=== PATIENT | male | born 1985 | race Two or more races ===

== ENCOUNTER 2020-07-22 19:28 | Inpatient (IN) | payer BC, MEDICAID ==
[~2020-07-22] VITALS: Ht 167.6 cm; Wt 72.4 kg
[~2020-07-22 19:28] MED LIST: AMOX1TAB64 PO; CHOL10003 PO; MELA5TAB14 PO; SULF-16 PO
[2020-07-22] MEDS ORDERED: SODIUM CHLORIDE FLUSH 10ML SYR IVF ONE (20:00)
[2020-07-22] MEDS ORDERED: ACETAMINOPHEN 500 MG TABLET PO ONE (20:00)
[2020-07-22] MEDS ORDERED: SODIUM CHLORIDE 0.9% 1,000ML IVBOLUS ONE (20:00)
--- NOTE | 2020-07-22 20:13 | NUR ---
THIS IS A 34 YR OLD MALE WITH NEW DX OF HIV. PT STATES HE RECIEVED PNA, FLU AND MUNNINGITIS VACCINE YESTERDAY AND STARTING SHORTLY AFTER HE BEGAN TO EXPERIENCE DIARRHEA, COUGH, SOB, AND FEVER. PT PLACED ON CARDIAC, NIBP, O2 MONITORING . IV ACCESS OBTAINED AND IV FLUIDS STARTED. PT IN ISOLATION PRECAUTIONS. LABS AND CULTURES DRAWN
--- NOTE | 2020-07-22 20:19 | NUR ---
PER PT REQUEST PHARMACY CONTACTED REGARDING INTERACTION WITH TYLENOL AND HIS HOME MED OF BIKTARVY. PER NATALEE PHAMACIST NONE NOTED.
[2020-07-22] MEDS ORDERED: ACETAMINOPHEN 500 MG TABLET ONE (20:20)
[2020-07-22 20:33] LABS: BASOPHILS % (AUTO) 0 % (0-1); EOSINOPHILS % (AUTO) 1 % (1-7); LYMPHOCYTES % (AUTO) 16 % (22-44); MEAN CORPUSCULAR HEMOGLOBIN 24.3 pg (27.5-34.5); MEAN CORPUSCULAR HGB CONC 32.7 g/dL (33.2-36.2); MEAN PLATELET VOLUME 8.1 fL (7.4-10.4); MONOCYTES % (AUTO) 7 % (2-9); NEUTROPHILS % (AUTO) 76 % (42-75); PLATELET COUNT 296 x10^3/uL (130-400); RED BLOOD COUNT 5.16 x10^6/uL (4.38-5.82); RED CELL DISTRIBUTION WIDTH 14.5 % (9.4-14.8)
[2020-07-22 20:35] LABS: MD NO
[2020-07-22 20:43] LABS: ALBUMIN 2.7 g/dL (3.4-5.0); ANION GAP 10 mmol/L (5-15); CALCIUM 8.2 mg/dL (8.5-10.1); CHLORIDE 99 mmol/L (98-107)
[2020-07-22 20:46] LABS: ALANINE AMINOTRANSFERASE 304 U/L (12-78); ALKALINE PHOSPHATASE 94 U/L (45-117); BILIRUBIN,TOTAL 0.5 mg/dL (0.2-1.0); CREATININE 1.15 mg/dL (0.7-1.3); TOTAL PROTEIN 7.2 g/dL (6.4-8.2)
[2020-07-22] MEDS ORDERED: CEFTRIAXONE PMX 1GM/50ML 50 ML ONE (20:57)
[2020-07-22] MEDS ORDERED: CEFTRIAXONE PMX 1GM/50ML 50 ML IVPB ONE (21:00)
[2020-07-22] MEDS ORDERED: AZITHROMYCIN 500 MG in SODIUM CHLORIDE 0.9% 250 ML IVPB ONE (21:00)
--- NOTE | 2020-07-22 21:15 | NUR ---
PER PHARMACY ROCEPHIN AND AZITHROMYCIN HAVE NO INTERACTIONS WITH BIKTARVY
[2020-07-22] MEDS ORDERED: OMNIPAQUE 350 MG/ML, 100ML BOTTLE ONE (21:24)
[2020-07-22] MEDS ORDERED: MELATONIN 5 MG TABLET PO PRN (22:00)
[2020-07-22] MEDS ORDERED: BISACODYL 10 MG SUPP PR PRN (22:00)
[2020-07-22] MEDS ORDERED: PROMETHAZINE 25 MG/ML, 1ML IM PRN (22:00)
[2020-07-22] MEDS ORDERED: DIPHENHYDRAMINE 25 MG CAPSULE PO PRN (22:00)
[2020-07-22] MEDS ORDERED: SULFAMETH./TRIMETHOPRIM 10 ML in DEXTROSE 5% 250 ML IV SCH (22:00)
[2020-07-22] MEDS ORDERED: DEXAMETHASONE 4 MG/ML, 1ML IVPush ONE (22:00)
[2020-07-22] MEDS ORDERED: ONDANSETRON 2MG/ML, 2ML IVPush PRN (22:00)
[2020-07-22] MEDS: AZITHROMYCIN 500 MG in SODIUM CHLORIDE 0.9% 250 ML IV SCH (22:00)
[2020-07-22] MEDS ORDERED: CYCLOBENZAPRINE 10 MG TABLET PO PRN (22:00)
[2020-07-22] MEDS: CEFTRIAXONE PMX 2GM/50ML 50 ML IVPB SCH (22:00)
[2020-07-22] MEDS ORDERED: POLYETHYLENE GLYCOL 17 GM PACKET PO PRN (22:00)
[2020-07-22] MEDS ORDERED: POTASSIUM CHLORIDE 20 MEQ TAB.ER.PRT PO ONE (22:00)
[2020-07-22 22:07] VITALS: BP 99/64
[2020-07-22] MEDS ORDERED: BICT1TAB PO (22:14)
[2020-07-22] MEDS ORDERED: FLUC200T4 PO (22:14)
[2020-07-22] MEDS ORDERED: SULFAMETH IV SCH (22:30)
[2020-07-22] MEDS ORDERED: TRIMETHOPRIM IV SCH (22:30)
[2020-07-22] MEDS ORDERED: DEXTROSE IV SCH (22:30)
[2020-07-23] MEDS: LACTATED RINGERS 1,000 ML IV SCH ×2 (00:15→09:45)
[2020-07-23] MEDS: SULFAMETH./TRIMETHOPRIM 20 ML in DEXTROSE 5% 500 ML IV SCH ×3 (00:15→13:05)
[2020-07-23] MEDS: ENOXAPARIN 40 MG/0.4 ML SQ SCH ×2 (00:16→22:05)
[2020-07-23 02:05] VITALS: BP 107/69
[2020-07-23] MEDS: GUAIFENESIN/DM 200-20MG, 10ML UDC PO PRN ×3 (02:49→22:11)
[2020-07-23 05:05] LABS: BASOPHILS % (AUTO) 0 % (0-1); EOSINOPHILS % (AUTO) 1 % (1-7); LYMPHOCYTES % (AUTO) 13 % (22-44); MEAN CORPUSCULAR HEMOGLOBIN 24.4 pg (27.5-34.5); MEAN CORPUSCULAR HGB CONC 32.6 g/dL (33.2-36.2); MONOCYTES % (AUTO) 4 % (2-9); NEUTROPHILS % (AUTO) 82 % (42-75); PLATELET COUNT 261 x10^3/uL (130-400); RED BLOOD COUNT 4.86 x10^6/uL (4.38-5.82); RED CELL DISTRIBUTION WIDTH 14.6 % (9.4-14.8)
[2020-07-23 05:08] LABS: MD NO
[2020-07-23 05:14] LABS: ALBUMIN 2.3 g/dL (3.4-5.0); ANION GAP 6 mmol/L (5-15); CALCIUM 7.7 mg/dL (8.5-10.1); CHLORIDE 101 mmol/L (98-107)
[2020-07-23 05:17] LABS: ALANINE AMINOTRANSFERASE 234 U/L (12-78); ALKALINE PHOSPHATASE 77 U/L (45-117); BILIRUBIN,TOTAL 0.4 mg/dL (0.2-1.0); CREATININE 0.93 mg/dL (0.7-1.3); TOTAL PROTEIN 6.3 g/dL (6.4-8.2)
[2020-07-23 07:32] VITALS: BP 112/75
[2020-07-23] MEDS: Biktarvy HOMEMEDPO SCH (08:01)
[2020-07-23] MEDS ORDERED: FAMOTIDINE 20 MG/2 ML IVPush SCH (09:00)
[2020-07-23] MEDS: FAMOTIDINE 20 MG TABLET PO SCH ×2 (09:44→20:05)
[2020-07-23] MEDS: FLUCONAZOLE 200 MG/100 ML 100 ML IV SCH (09:45)
[2020-07-23] MEDS: SENNA/DOCUSATE TABLET PO SCH (09:53)
[2020-07-23] MEDS ORDERED: methylPREDNISolone SOD SUCC 125 MG/2 ML IVPush ONE (11:30)
[2020-07-23 12:59] VITALS: BP 101/67
[2020-07-23 16:11] LABS: OCCULT BLOOD NEGATIVE (NEGATIVE)
[2020-07-23 16:28] LABS: CLOSTRIDIUM DIFFICILE ANTIGEN NEGATIVE; CLOSTRIDIUM DIFFICILE TOXIN NEGATIVE (Negative); CRYPTOSPORIDIUM ANTIGEN Negative (Negative)
[2020-07-23 16:48] LABS: STOOL FOR LEUKOCYTES NONE SEEN (NEGATIVE)
[2020-07-23] MEDS: DEXTROSE 5% IVPB SCH (17:34)
[2020-07-23] MEDS: PENTAMIDINE IVPB SCH (17:34)
[2020-07-23 19:19] VITALS: BP 104/68
[2020-07-23] MEDS: CEFTRIAXONE PMX 2GM/50ML 50 ML IVPB SCH (20:06)
[2020-07-23] MEDS: AZITHROMYCIN 500 MG in SODIUM CHLORIDE 0.9% 250 ML IV SCH (22:05)
[2020-07-24 01:29] VITALS: BP 95/60
[2020-07-24 05:35] LABS: BASOPHILS % (AUTO) 0 % (0-1); EOSINOPHILS % (AUTO) 0 % (1-7); LYMPHOCYTES % (AUTO) 19 % (22-44); MD NO; MEAN CORPUSCULAR HEMOGLOBIN 24.6 pg (27.5-34.5); MEAN CORPUSCULAR HGB CONC 32.6 g/dL (33.2-36.2); MEAN PLATELET VOLUME 8.2 fL (7.4-10.4); MONOCYTES % (AUTO) 7 % (2-9); NEUTROPHILS % (AUTO) 73 % (42-75); PLATELET COUNT 254 x10^3/uL (130-400); RED BLOOD COUNT 4.59 x10^6/uL (4.38-5.82); RED CELL DISTRIBUTION WIDTH 14.6 % (9.4-14.8)
[2020-07-24 05:43] LABS: ALBUMIN 2.1 g/dL (3.4-5.0); ANION GAP 6 mmol/L (5-15); CALCIUM 7.9 mg/dL (8.5-10.1); CHLORIDE 107 mmol/L (98-107)
[2020-07-24 05:47] LABS: ALANINE AMINOTRANSFERASE 170 U/L (12-78); ALKALINE PHOSPHATASE 63 U/L (45-117); BILIRUBIN,TOTAL 0.2 mg/dL (0.2-1.0); CREATININE 0.79 mg/dL (0.7-1.3); TOTAL PROTEIN 5.8 g/dL (6.4-8.2)
[2020-07-24 07:04] VITALS: BP 102/62
[2020-07-24] MEDS: FAMOTIDINE 20 MG TABLET PO SCH ×2 (07:53→21:16)
[2020-07-24] MEDS: Biktarvy HOMEMEDPO SCH ×2 (07:56→09:26)
[2020-07-24] MEDS ORDERED: methylPREDNISolone SOD SUCC 125 MG/2 ML IVPush ONE (08:00)
[2020-07-24] MEDS: FLUCONAZOLE 200 MG/100 ML 100 ML IV SCH (09:26)
[2020-07-24] MEDS: SENNA/DOCUSATE TABLET PO SCH (09:27)
[2020-07-24] MEDS ORDERED: SULFAMETH./TRIMETHOPRIM 20 ML in DEXTROSE 5% 500 ML IV ONE (10:00)
[2020-07-24] MEDS ORDERED: PLEASE ENTER ALLERGIES MC SCH (10:00)
[2020-07-24 10:59] VITALS: BP 96/63
[2020-07-24 12:30] VITALS: BP 92/59
[2020-07-24] MEDS: GUAIFENESIN/DM 200-20MG, 10ML UDC PO PRN ×2 (13:19→21:16)
[2020-07-24] MEDS: SULFAMETH./TRIMETHOPRIM 20 ML in DEXTROSE 5% 500 ML IV SCH (17:22)
[2020-07-24 19:25] VITALS: BP 98/61
[2020-07-24] MEDS: CEFTRIAXONE PMX 2GM/50ML 50 ML IVPB SCH (21:16)
[2020-07-24] MEDS: ACETAMINOPHEN 325 MG TABLET PO PRN (21:46)
[2020-07-24] MEDS: AZITHROMYCIN 500 MG in SODIUM CHLORIDE 0.9% 250 ML IV SCH (22:42)
[2020-07-24] MEDS: ENOXAPARIN 40 MG/0.4 ML SQ SCH (22:42)
[2020-07-25] VITALS (9 sets, daily range): BP systolic 73–99; BP diastolic 40–63
[2020-07-25] MEDS: SULFAMETH./TRIMETHOPRIM 20 ML in DEXTROSE 5% 500 ML IV SCH ×3 (00:17→11:32)
[2020-07-25] MEDS ORDERED: SODIUM CHLORIDE 0.9%, 500ML IVBOLUS ONE (01:00)
[2020-07-25] MEDS: SENNA/DOCUSATE TABLET PO SCH (07:17)
[2020-07-25] MEDS: FAMOTIDINE 20 MG TABLET PO SCH ×2 (07:56→21:03)
[2020-07-25] MEDS: Biktarvy HOMEMEDPO SCH (07:57)
[2020-07-25] MEDS: ACETAMINOPHEN 325 MG TABLET PO PRN ×3 (08:05→22:32)
[2020-07-25] MEDS: FLUCONAZOLE 200 MG/100 ML 100 ML IV SCH (09:08)
[2020-07-25] MEDS ORDERED: DEXTROSE 5% IVPB SCH (12:00)
[2020-07-25] MEDS ORDERED: PENTAMIDINE IVPB SCH (12:00)
[2020-07-25] MEDS: DEXTROSE 5% IVPB SCH (17:26)
[2020-07-25] MEDS: PENTAMIDINE IVPB SCH (17:26)
[2020-07-25] MEDS: ENOXAPARIN 40 MG/0.4 ML SQ SCH (21:03)
[2020-07-25] MEDS: CEFTRIAXONE PMX 2GM/50ML 50 ML IVPB SCH (21:03)
[2020-07-25] MEDS: GUAIFENESIN/DM 200-20MG, 10ML UDC PO PRN (21:14)
[2020-07-25] MEDS: AZITHROMYCIN 500 MG in SODIUM CHLORIDE 0.9% 250 ML IV SCH (22:32)
[2020-07-26] VITALS (7 sets, daily range): BP systolic 80–108; BP diastolic 44–67
[2020-07-26] MEDS ORDERED: SODIUM CHLORIDE 0.9% 1,000ML IVBOLUS ONE (00:30)
[2020-07-26] MEDS: GUAIFENESIN/DM 200-20MG, 10ML UDC PO PRN ×2 (04:48→14:56)
[2020-07-26 05:45] LABS: BASOPHILS % (AUTO) 0 % (0-1); EOSINOPHILS % (AUTO) 4 % (1-7); LYMPHOCYTES % (AUTO) 20 % (22-44); MEAN CORPUSCULAR HEMOGLOBIN 24.2 pg (27.5-34.5); MEAN CORPUSCULAR HGB CONC 32.6 g/dL (33.2-36.2); MONOCYTES % (AUTO) 5 % (2-9); NEUTROPHILS % (AUTO) 71 % (42-75); PLATELET COUNT 322 x10^3/uL (130-400); RED BLOOD COUNT 4.72 x10^6/uL (4.38-5.82); RED CELL DISTRIBUTION WIDTH 14.4 % (9.4-14.8)
[2020-07-26 05:48] LABS: MD NO
[2020-07-26 05:52] LABS: CHLORIDE 104 mmol/L (98-107)
[2020-07-26 06:04] LABS: ALANINE AMINOTRANSFERASE 118 U/L (12-78); ALBUMIN 2.2 g/dL (3.4-5.0); ALKALINE PHOSPHATASE 61 U/L (45-117); ANION GAP 8 mmol/L (5-15); BILIRUBIN,TOTAL 0.3 mg/dL (0.2-1.0); CALCIUM 8.3 mg/dL (8.5-10.1); CREATININE 1.13 mg/dL (0.7-1.3); TOTAL PROTEIN 6.1 g/dL (6.4-8.2)
[2020-07-26] MEDS: SENNA/DOCUSATE TABLET PO SCH (08:50)
[2020-07-26] MEDS: Biktarvy HOMEMEDPO SCH (08:50)
[2020-07-26] MEDS: FAMOTIDINE 20 MG TABLET PO SCH ×2 (08:51→21:04)
[2020-07-26 09:12] LABS: CRYPTOSPORIDIUM ANTIGEN Negative (Negative)
[2020-07-26] MEDS: PENTAMIDINE IVPB SCH (16:31)
[2020-07-26] MEDS: DEXTROSE 5% IVPB SCH (16:31)
[2020-07-26] MEDS: CEFTRIAXONE PMX 2GM/50ML 50 ML IVPB SCH (21:04)
[2020-07-26] MEDS: ACETAMINOPHEN 325 MG TABLET PO PRN (21:04)
[2020-07-26] MEDS: ENOXAPARIN 40 MG/0.4 ML SQ SCH (21:05)
[2020-07-26] MEDS: AZITHROMYCIN 500 MG in SODIUM CHLORIDE 0.9% 250 ML IV SCH (22:21)
[2020-07-27] VITALS (7 sets, daily range): BP systolic 68–98; BP diastolic 46–62
[2020-07-27] MEDS ORDERED: SODIUM CHLORIDE 0.9% 1,000ML IVBOLUS ONE (00:30)
[2020-07-27] MEDS ORDERED: LACTATED RINGERS 1,000 ML IV SCH (02:00)
[2020-07-27] MEDS: GUAIFENESIN/DM 200-20MG, 10ML UDC PO PRN ×2 (03:07→16:01)
[2020-07-27] MEDS: FAMOTIDINE 20 MG TABLET PO SCH ×2 (08:45→20:53)
[2020-07-27] MEDS: SENNA/DOCUSATE TABLET PO SCH (08:45)
[2020-07-27] MEDS: Biktarvy HOMEMEDPO SCH (08:45)
[2020-07-27] MEDS: ACETAMINOPHEN 325 MG TABLET PO PRN ×2 (08:45→17:59)
[2020-07-27] MEDS: LACTATED RINGERS 1,000 ML IV SCH ×2 (11:05→19:51)
[2020-07-27] MEDS: DEXTROSE 5% IVPB SCH (15:59)
[2020-07-27] MEDS: PENTAMIDINE IVPB SCH (15:59)
[2020-07-27] MEDS: CEFTRIAXONE PMX 2GM/50ML 50 ML IVPB SCH (20:51)
[2020-07-27] MEDS: ENOXAPARIN 40 MG/0.4 ML SQ SCH (20:54)
[2020-07-27] MEDS: AZITHROMYCIN 500 MG in SODIUM CHLORIDE 0.9% 250 ML IV SCH (22:45)
[2020-07-28 00:10] VITALS: BP 132/64
[2020-07-28] MEDS: ACETAMINOPHEN 325 MG TABLET PO PRN ×2 (00:14→12:37)
[2020-07-28] MEDS: LACTATED RINGERS 1,000 ML IV SCH ×2 (06:00→21:43)
[2020-07-28] MEDS: GUAIFENESIN/DM 200-20MG, 10ML UDC PO PRN ×2 (06:05→19:53)
[2020-07-28 07:07] VITALS: BP 93/56
[2020-07-28] MEDS: SENNA/DOCUSATE TABLET PO SCH (08:53)
[2020-07-28] MEDS: Biktarvy HOMEMEDPO SCH (08:53)
[2020-07-28] MEDS: FAMOTIDINE 20 MG TABLET PO SCH ×2 (08:54→20:08)
[2020-07-28 12:11] VITALS: BP 93/57
[2020-07-28] MEDS: PENTAMIDINE IVPB SCH (17:25)
[2020-07-28] MEDS: DEXTROSE 5% IVPB SCH (17:25)
[2020-07-28 19:54] VITALS: BP 119/35
[2020-07-28] MEDS: CEFTRIAXONE PMX 2GM/50ML 50 ML IVPB SCH (20:32)
[2020-07-28] MEDS: ENOXAPARIN 40 MG/0.4 ML SQ SCH (20:35)
[2020-07-28] MEDS: AZITHROMYCIN 500 MG in SODIUM CHLORIDE 0.9% 250 ML IV SCH (22:55)
[2020-07-29] VITALS (12 sets, daily range): BP systolic 78–121; BP diastolic 45–72
[2020-07-29] MEDS: ACETAMINOPHEN 325 MG TABLET PO PRN ×3 (00:44→17:50)
[2020-07-29] MEDS ORDERED: SODIUM CHLORIDE 0.9% 1,000ML IVBOLUS ONE (01:00)
[2020-07-29] MEDS ORDERED: SODIUM CHLORIDE 0.9%, 500ML IVBOLUS ONE (02:00)
[2020-07-29] MEDS: LACTATED RINGERS 1,000 ML IV SCH ×3 (02:15→19:46)
[2020-07-29] MEDS ORDERED: FENTANYL PF 100 MCG/2ML ONE ×2 (07:12)
[2020-07-29] MEDS ORDERED: MIDAZOLAM 1 MG/ML, 5ML ONE (07:12)
[2020-07-29] MEDS: Biktarvy HOMEMEDPO SCH (09:00)
[2020-07-29] MEDS: SENNA/DOCUSATE TABLET PO SCH (09:00)
[2020-07-29] MEDS: FAMOTIDINE 20 MG TABLET PO SCH ×2 (09:21→20:13)
[2020-07-29 09:29] LABS: BASOPHILS % (AUTO) 0 % (0-1); EOSINOPHILS % (AUTO) 4 % (1-7); LYMPHOCYTES % (AUTO) 14 % (22-44); MEAN CORPUSCULAR HEMOGLOBIN 23.9 pg (27.5-34.5); MEAN CORPUSCULAR HGB CONC 31.8 g/dL (33.2-36.2); MEAN PLATELET VOLUME 7.7 fL (7.4-10.4); MONOCYTES % (AUTO) 7 % (2-9); NEUTROPHILS % (AUTO) 76 % (42-75); PLATELET COUNT 391 x10^3/uL (130-400); RED BLOOD COUNT 4.51 x10^6/uL (4.38-5.82); RED CELL DISTRIBUTION WIDTH 14.9 % (9.4-14.8)
[2020-07-29 09:31] LABS: MD NO
[2020-07-29 09:41] LABS: ALANINE AMINOTRANSFERASE 44 U/L (12-78); ALBUMIN 1.7 g/dL (3.4-5.0); ANION GAP 4 mmol/L (5-15); CALCIUM 7.6 mg/dL (8.5-10.1); CHLORIDE 107 mmol/L (98-107); CREATININE 0.83 mg/dL (0.7-1.3)
[2020-07-29 09:44] LABS: ALKALINE PHOSPHATASE 50 U/L (45-117); BILIRUBIN,TOTAL 0.3 mg/dL (0.2-1.0); TOTAL PROTEIN 5.6 g/dL (6.4-8.2)
[2020-07-29] MEDS ORDERED: LIDOCAINE GEL 2%, 5ML ONE (10:36)
[2020-07-29] MEDS ORDERED: LIDOCAINE 4% TOPICAL SOLUTION 50 ML ONE (10:36)
[2020-07-29] MEDS ORDERED: LORazepam 2 MG/ML, 1ML IVPush PRN (11:00)
[2020-07-29] MEDS ORDERED: GOLYTELY 4,000ML ORAL.SOL PO ONE (17:30)
[2020-07-29] MEDS: DEXTROSE 5% IVPB SCH (17:44)
[2020-07-29] MEDS: PENTAMIDINE IVPB SCH (17:44)
[2020-07-29] MEDS: LORazepam 1MG TABLET PO PRN ×2 (20:13→22:08)
[2020-07-29] MEDS: GUAIFENESIN/DM 200-20MG, 10ML UDC PO PRN (20:13)
[2020-07-29] MEDS: ENOXAPARIN 40 MG/0.4 ML SQ SCH (20:14)
[2020-07-30 00:35] VITALS: BP 108/68
[2020-07-30] MEDS: ACETAMINOPHEN 325 MG TABLET PO PRN (00:38)
[2020-07-30] MEDS: LACTATED RINGERS 1,000 ML IV SCH ×3 (02:00→20:45)
[2020-07-30 05:02] LABS: BASOPHILS % (AUTO) 0 % (0-1); EOSINOPHILS % (AUTO) 1 % (1-7); LYMPHOCYTES % (AUTO) 21 % (22-44); MEAN CORPUSCULAR HEMOGLOBIN 24.3 pg (27.5-34.5); MEAN CORPUSCULAR HGB CONC 32.4 g/dL (33.2-36.2); MEAN PLATELET VOLUME 7.8 fL (7.4-10.4); MONOCYTES % (AUTO) 6 % (2-9); NEUTROPHILS % (AUTO) 71 % (42-75); PLATELET COUNT 342 x10^3/uL (130-400); RED BLOOD COUNT 3.85 x10^6/uL (4.38-5.82); RED CELL DISTRIBUTION WIDTH 14.9 % (9.4-14.8)
[2020-07-30 05:09] LABS: MD NO
[2020-07-30 05:16] LABS: ALBUMIN 1.5 g/dL (3.4-5.0); ANION GAP 3 mmol/L (5-15); CALCIUM 7.6 mg/dL (8.5-10.1); CHLORIDE 103 mmol/L (98-107)
[2020-07-30 05:21] LABS: ALANINE AMINOTRANSFERASE 47 U/L (12-78); ALKALINE PHOSPHATASE 53 U/L (45-117); BILIRUBIN,TOTAL 0.2 mg/dL (0.2-1.0); CREATININE 0.78 mg/dL (0.7-1.3); TOTAL PROTEIN 5.1 g/dL (6.4-8.2)
[2020-07-30 07:36] VITALS: BP 110/76
[2020-07-30] MEDS: SENNA/DOCUSATE TABLET PO SCH (08:06)
[2020-07-30] MEDS: FAMOTIDINE 20 MG TABLET PO SCH ×2 (08:17→20:44)
[2020-07-30] MEDS: Biktarvy HOMEMEDPO SCH (08:17)
[2020-07-30] MEDS ORDERED: OXYcodone 5 MG/5 ML ORAL.SOL UDC PO PRN (08:30)
[2020-07-30] MEDS ORDERED: ACETAMINOPHEN 325 MG TABLET PO PRN (08:30)
[2020-07-30] MEDS ORDERED: ONDANSETRON 2MG/ML, 2ML IVPush PRN (08:30)
[2020-07-30] MEDS ORDERED: FENTANYL PF 100 MCG/2ML IV PRN (08:30)
[2020-07-30] MEDS ORDERED: hydrALAzine 20 MG/ML, 1ML IV PRN (08:30)
[2020-07-30] MEDS ORDERED: PROMETHAZINE 25 MG/ML, 1ML IVPush PRN (08:30)
[2020-07-30] MEDS ORDERED: EPHEDRINE 50 MG/ML, 1ML IVPush PRN (08:30)
[2020-07-30] MEDS ORDERED: HYDROmorphone 1 MG/ML, 1ML INJ IVPush PRN (08:30)
[2020-07-30] MEDS ORDERED: LABETALOL 5MG/ML, 20ML IV PRN (08:30)
[2020-07-30] MEDS ORDERED: GANCICLOVIR 400 MG in SODIUM CHLORIDE 0.9% 100 ML IV SCH (11:00)
[2020-07-30] MEDS: GANCICLOVIR 400 MG in SODIUM CHLORIDE 0.9% 100 ML IV SCH (12:40)
[2020-07-30 14:14] VITALS: BP 105/67
[2020-07-30] MEDS: PENTAMIDINE IVPB SCH (17:39)
[2020-07-30] MEDS: DEXTROSE 5% IVPB SCH (17:39)
[2020-07-30 19:12] VITALS: BP 96/60
[2020-07-30] MEDS: ENOXAPARIN 40 MG/0.4 ML SQ SCH (20:44)
[2020-07-30] MEDS ORDERED: GANCICLOVIR 500 MG IV SCH (21:00)
[2020-07-31] MEDS: GANCICLOVIR 400 MG in SODIUM CHLORIDE 0.9% 100 ML IV SCH ×2 (00:09→14:43)
[2020-07-31 00:31] VITALS: BP 111/70
[2020-07-31] MEDS: LACTATED RINGERS 1,000 ML IV SCH ×2 (05:02→11:48)
[2020-07-31 07:40] VITALS: BP 109/67
[2020-07-31] MEDS: FAMOTIDINE 20 MG TABLET PO SCH ×2 (09:00→20:10)
[2020-07-31] MEDS: SENNA/DOCUSATE TABLET PO SCH (09:00)
[2020-07-31] MEDS: Biktarvy HOMEMEDPO SCH (09:00)
[2020-07-31] MEDS: DEXTROSE 5% IV SCH ×2 (11:45→23:58)
[2020-07-31] MEDS: VORICONAZOLE IV SCH ×2 (11:45→23:58)
[2020-07-31 12:17] VITALS: BP 105/72
[2020-07-31 16:58] VITALS: BP 108/72
[2020-07-31] MEDS: ACETAMINOPHEN 325 MG TABLET PO PRN (17:09)
[2020-07-31 19:17] VITALS: BP 103/65
[2020-07-31] MEDS: ENOXAPARIN 40 MG/0.4 ML SQ SCH (20:10)
[2020-08-01] MEDS: GANCICLOVIR 400 MG in SODIUM CHLORIDE 0.9% 100 ML IV SCH ×2 (02:55→11:43)
[2020-08-01 03:55] VITALS: BP 97/69
[2020-08-01] MEDS: LACTATED RINGERS 1,000 ML IV SCH ×3 (06:23→21:49)
[2020-08-01 06:45] VITALS: BP 102/67
[2020-08-01] MEDS: Biktarvy HOMEMEDPO SCH (08:00)
[2020-08-01 08:18] LABS: BASOPHILS % (AUTO) 1 % (0-1); EOSINOPHILS % (AUTO) 2 % (1-7); LYMPHOCYTES % (AUTO) 25 % (22-44); MEAN CORPUSCULAR HEMOGLOBIN 24.1 pg (27.5-34.5); MEAN CORPUSCULAR HGB CONC 32.4 g/dL (33.2-36.2); MEAN PLATELET VOLUME 7.4 fL (7.4-10.4); MONOCYTES % (AUTO) 7 % (2-9); NEUTROPHILS % (AUTO) 65 % (42-75); PLATELET COUNT 392 x10^3/uL (130-400); RED BLOOD COUNT 4.02 x10^6/uL (4.38-5.82); RED CELL DISTRIBUTION WIDTH 14.6 % (9.4-14.8)
[2020-08-01 08:22] LABS: MD NO
[2020-08-01 08:29] LABS: ANION GAP 5 mmol/L (5-15); CHLORIDE 99 mmol/L (98-107)
[2020-08-01 08:33] LABS: CALCIUM 8.3 mg/dL (8.5-10.1); CREATININE 0.93 mg/dL (0.7-1.3)
[2020-08-01] MEDS: VORICONAZOLE 200 MG TABLET PO SCH ×2 (09:11→21:35)
[2020-08-01] MEDS: FAMOTIDINE 20 MG TABLET PO SCH ×2 (09:11→21:35)
[2020-08-01] MEDS: SENNA/DOCUSATE TABLET PO SCH (09:21)
[2020-08-01 12:16] VITALS: BP 120/68
[2020-08-01 20:13] VITALS: BP 113/73
[2020-08-01] MEDS: ENOXAPARIN 40 MG/0.4 ML SQ SCH (21:36)
[2020-08-01] MEDS: ACETAMINOPHEN 325 MG TABLET PO PRN (21:49)
[2020-08-02] MEDS: GANCICLOVIR 400 MG in SODIUM CHLORIDE 0.9% 100 ML IV SCH ×2 (00:20→12:12)
[2020-08-02 01:56] VITALS: BP 121/76
[2020-08-02] MEDS: LACTATED RINGERS 1,000 ML IV SCH ×2 (05:11→12:12)
[2020-08-02] MEDS: FAMOTIDINE 20 MG TABLET PO SCH ×2 (08:23→20:45)
[2020-08-02] MEDS: Biktarvy HOMEMEDPO SCH (08:24)
[2020-08-02] MEDS: SENNA/DOCUSATE TABLET PO SCH (08:24)
[2020-08-02] MEDS: VORICONAZOLE 200 MG TABLET PO SCH (08:29)
[2020-08-02 10:00] VITALS: BP 109/72
[2020-08-02] MEDS: ACETAMINOPHEN 325 MG TABLET PO PRN ×2 (10:37→22:16)
[2020-08-02] MEDS ORDERED: DEXTROSE 5% IV SCH ×2 (11:30→19:00)
[2020-08-02] MEDS ORDERED: VORICONAZOLE IV SCH ×2 (11:30→19:00)
[2020-08-02] MEDS: DEXTROSE 5% IV SCH (14:37)
[2020-08-02] MEDS: VORICONAZOLE IV SCH (14:37)
[2020-08-02 15:18] VITALS: BP 100/60
[2020-08-02] MEDS: ENOXAPARIN 40 MG/0.4 ML SQ SCH (20:45)
[2020-08-02 21:41] VITALS: BP 122/81
[2020-08-02] MEDS: LORazepam 1MG TABLET PO PRN (22:16)
[2020-08-03] MEDS: GANCICLOVIR 400 MG in SODIUM CHLORIDE 0.9% 100 ML IV SCH ×2 (00:45→12:46)
[2020-08-03] MEDS: LACTATED RINGERS 1,000 ML IV SCH ×2 (00:46→14:34)
[2020-08-03] MEDS: DEXTROSE 5% IV SCH (02:21)
[2020-08-03] MEDS: VORICONAZOLE IV SCH (02:21)
[2020-08-03 02:40] VITALS: BP 110/69
[2020-08-03 05:58] LABS: BASOPHILS % (AUTO) 1 % (0-1); EOSINOPHILS % (AUTO) 2 % (1-7); LYMPHOCYTES % (AUTO) 25 % (22-44); MEAN CORPUSCULAR HEMOGLOBIN 24.1 pg (27.5-34.5); MEAN CORPUSCULAR HGB CONC 32.3 g/dL (33.2-36.2); MEAN PLATELET VOLUME 7.6 fL (7.4-10.4); MONOCYTES % (AUTO) 6 % (2-9); NEUTROPHILS % (AUTO) 67 % (42-75); PLATELET COUNT 455 x10^3/uL (130-400); RED BLOOD COUNT 4.52 x10^6/uL (4.38-5.82); RED CELL DISTRIBUTION WIDTH 15.1 % (9.4-14.8)
[2020-08-03 06:02] LABS: MD NO
[2020-08-03 06:09] LABS: ANION GAP 3 mmol/L (5-15); CALCIUM 8.6 mg/dL (8.5-10.1); CHLORIDE 101 mmol/L (98-107); CREATININE 0.95 mg/dL (0.7-1.3)
[2020-08-03 07:13] VITALS: BP 117/74
[2020-08-03] MEDS: FAMOTIDINE 20 MG TABLET PO SCH ×2 (08:42→20:18)
[2020-08-03] MEDS: SENNA/DOCUSATE TABLET PO SCH (08:44)
[2020-08-03] MEDS: Biktarvy HOMEMEDPO SCH (08:44)
[2020-08-03 13:21] VITALS: BP 107/65
[2020-08-03 19:24] VITALS: BP 130/87
[2020-08-03] MEDS: ENOXAPARIN 40 MG/0.4 ML SQ SCH (20:19)
[2020-08-04] MEDS: GANCICLOVIR 400 MG in SODIUM CHLORIDE 0.9% 100 ML IV SCH ×2 (00:20→14:30)
[2020-08-04 00:27] VITALS: BP 111/69
[2020-08-04] MEDS: LACTATED RINGERS 1,000 ML IV SCH (06:31)
[2020-08-04 07:18] VITALS: BP 120/76
[2020-08-04] MEDS: SENNA/DOCUSATE TABLET PO SCH (07:24)
[2020-08-04] MEDS: FAMOTIDINE 20 MG TABLET PO SCH ×2 (08:26→20:53)
[2020-08-04] MEDS: Biktarvy HOMEMEDPO SCH (08:27)
[2020-08-04] MEDS ORDERED: VORICONAZOLE IV SCH (11:30)
[2020-08-04] MEDS ORDERED: DEXTROSE 5% IV SCH (11:30)
[2020-08-04] MEDS: DEXTROSE 5% IV SCH ×2 (11:47→23:34)
[2020-08-04] MEDS: VORICONAZOLE IV SCH ×2 (11:47→23:34)
[2020-08-04 13:06] VITALS: BP 113/71
[2020-08-04 19:37] VITALS: BP 128/86
[2020-08-04] MEDS: ENOXAPARIN 40 MG/0.4 ML SQ SCH (20:54)
[2020-08-05] MEDS: GANCICLOVIR 400 MG in SODIUM CHLORIDE 0.9% 100 ML IV SCH ×2 (02:30→16:37)
[2020-08-05 02:47] VITALS: BP 95/57
[2020-08-05] MEDS: ACETAMINOPHEN 325 MG TABLET PO PRN ×2 (03:00→10:10)
[2020-08-05 05:31] LABS: BASOPHILS % (AUTO) 2 % (0-1); EOSINOPHILS % (AUTO) 3 % (1-7); LYMPHOCYTES % (AUTO) 30 % (22-44); MEAN CORPUSCULAR HEMOGLOBIN 24.4 pg (27.5-34.5); MEAN CORPUSCULAR HGB CONC 32.5 g/dL (33.2-36.2); MEAN PLATELET VOLUME 7.6 fL (7.4-10.4); MONOCYTES % (AUTO) 6 % (2-9); NEUTROPHILS % (AUTO) 59 % (42-75); PLATELET COUNT 460 x10^3/uL (130-400); RED BLOOD COUNT 4.42 x10^6/uL (4.38-5.82); RED CELL DISTRIBUTION WIDTH 15.1 % (9.4-14.8)
[2020-08-05 05:41] LABS: ANION GAP 5 mmol/L (5-15); CALCIUM 8.6 mg/dL (8.5-10.1); CHLORIDE 99 mmol/L (98-107); CREATININE 0.91 mg/dL (0.7-1.3)
[2020-08-05 05:42] LABS: MD NO
[2020-08-05] MEDS: Biktarvy HOMEMEDPO SCH (08:00)
[2020-08-05 08:34] VITALS: BP 98/62
[2020-08-05] MEDS: SENNA/DOCUSATE TABLET PO SCH (09:00)
[2020-08-05] MEDS: FAMOTIDINE 20 MG TABLET PO SCH ×2 (10:10→20:13)
[2020-08-05] MEDS: VORICONAZOLE IV SCH (13:13)
[2020-08-05] MEDS: DEXTROSE 5% IV SCH (13:13)
[2020-08-05 15:21] VITALS: BP 102/65
[2020-08-05 18:50] VITALS: BP 94/59
[2020-08-05] MEDS: ENOXAPARIN 40 MG/0.4 ML SQ SCH (20:13)
[2020-08-06] MEDS: DEXTROSE 5% IV SCH ×2 (00:56→13:02)
[2020-08-06] MEDS: VORICONAZOLE IV SCH ×2 (00:56→13:02)
[2020-08-06 01:28] VITALS: BP 97/60
[2020-08-06 04:37] LABS: CHLORIDE 102 mmol/L (98-107)
[2020-08-06 04:41] LABS: ANION GAP 5 mmol/L (5-15); CALCIUM 8.2 mg/dL (8.5-10.1); CREATININE 0.81 mg/dL (0.7-1.3)
[2020-08-06] MEDS: GANCICLOVIR 400 MG in SODIUM CHLORIDE 0.9% 100 ML IV SCH ×2 (04:49→16:37)
[2020-08-06 06:58] VITALS: BP 103/68
[2020-08-06] MEDS: Biktarvy HOMEMEDPO SCH (08:00)
[2020-08-06] MEDS: SENNA/DOCUSATE TABLET PO SCH (09:00)
[2020-08-06] MEDS: FAMOTIDINE 20 MG TABLET PO SCH ×2 (09:30→20:51)
[2020-08-06 12:44] VITALS: BP 90/56
[2020-08-06 20:26] VITALS: BP 105/67
[2020-08-06] MEDS: ENOXAPARIN 40 MG/0.4 ML SQ SCH (20:52)
[2020-08-07] MEDS: VORICONAZOLE IV SCH ×2 (00:42→14:00)
[2020-08-07] MEDS: DEXTROSE 5% IV SCH ×2 (00:42→14:00)
[2020-08-07 02:00] VITALS: BP 95/61
[2020-08-07] MEDS: GANCICLOVIR 400 MG in SODIUM CHLORIDE 0.9% 100 ML IV SCH ×2 (04:12→16:43)
[2020-08-07] MEDS: Biktarvy HOMEMEDPO SCH (08:00)
[2020-08-07 08:30] VITALS: BP 100/64
[2020-08-07] MEDS: SENNA/DOCUSATE TABLET PO SCH (09:00)
[2020-08-07] MEDS: FAMOTIDINE 20 MG TABLET PO SCH ×2 (09:26→21:21)
[2020-08-07 12:35] VITALS: BP 90/57
[2020-08-07 19:16] VITALS: BP 98/56
[2020-08-07] MEDS: ENOXAPARIN 40 MG/0.4 ML SQ SCH (21:22)
[2020-08-08] MEDS: DEXTROSE 5% IV SCH ×2 (01:00→13:00)
[2020-08-08] MEDS: VORICONAZOLE IV SCH ×2 (01:00→13:00)
[2020-08-08] MEDS: GANCICLOVIR 400 MG in SODIUM CHLORIDE 0.9% 100 ML IV SCH (01:28)
[2020-08-08 02:15] VITALS: BP 101/59
[2020-08-08 06:12] LABS: HCT (SEDRATE) 33.4 % (39.2-51.8)
[2020-08-08 06:14] LABS: BASOPHILS % (AUTO) 2 % (0-1); EOSINOPHILS % (AUTO) 3 % (1-7); LYMPHOCYTES % (AUTO) 42 % (22-44); MEAN CORPUSCULAR HEMOGLOBIN 24.1 pg (27.5-34.5); MEAN CORPUSCULAR HGB CONC 31.5 g/dL (33.2-36.2); MEAN PLATELET VOLUME 7.4 fL (7.4-10.4); MONOCYTES % (AUTO) 4 % (2-9); NEUTROPHILS % (AUTO) 50 % (42-75); PLATELET COUNT 506 x10^3/uL (130-400); RED BLOOD COUNT 4.41 x10^6/uL (4.38-5.82); RED CELL DISTRIBUTION WIDTH 15.1 % (9.4-14.8)
[2020-08-08 06:15] LABS: MD NO
[2020-08-08 06:21] LABS: ALANINE AMINOTRANSFERASE 146 U/L (12-78); ALBUMIN 2.1 g/dL (3.4-5.0); ANION GAP 5 mmol/L (5-15); CALCIUM 8.5 mg/dL (8.5-10.1); CHLORIDE 103 mmol/L (98-107)
[2020-08-08 06:28] LABS: ALKALINE PHOSPHATASE 117 U/L (45-117); BILIRUBIN,TOTAL < 0.1 mg/dL (0.2-1.0); CREATININE 0.87 mg/dL (0.7-1.3); TOTAL PROTEIN 6.6 g/dL (6.4-8.2)
[2020-08-08 08:45] VITALS: BP 105/72
[2020-08-08] MEDS: Biktarvy HOMEMEDPO SCH (09:00)
[2020-08-08] MEDS: SENNA/DOCUSATE TABLET PO SCH (09:00)
[2020-08-08] MEDS: FAMOTIDINE 20 MG TABLET PO SCH ×2 (10:00→21:47)
[2020-08-08] MEDS: VALGANCICLOVIR 450MG TABLET PO SCH ×2 (10:35→21:48)
[2020-08-08 15:45] VITALS: BP 91/52
[2020-08-08 18:55] VITALS: BP 97/60
[2020-08-08] MEDS: ENOXAPARIN 40 MG/0.4 ML SQ SCH (21:50)
[2020-08-09] MEDS: VORICONAZOLE IV SCH ×2 (01:00→13:00)
[2020-08-09] MEDS: DEXTROSE 5% IV SCH ×2 (01:00→13:00)
[2020-08-09 02:00] VITALS: BP 102/64
[2020-08-09 07:10] VITALS: BP 95/61
[2020-08-09] MEDS: SENNA/DOCUSATE TABLET PO SCH (09:00)
[2020-08-09] MEDS: Biktarvy HOMEMEDPO SCH (09:00)
[2020-08-09] MEDS: VALGANCICLOVIR 450MG TABLET PO SCH ×2 (09:32→23:00)
[2020-08-09] MEDS: FAMOTIDINE 20 MG TABLET PO SCH ×2 (09:32→22:00)
[2020-08-09 14:29] VITALS: BP 99/68
[2020-08-09] MEDS: VORICONAZOLE 200 MG TABLET PO SCH (15:20)
[2020-08-09 19:27] VITALS: BP 95/60
[2020-08-09] MEDS: ENOXAPARIN 40 MG/0.4 ML SQ SCH (21:59)
[2020-08-10 02:27] VITALS: BP 93/56
[2020-08-10] MEDS: VORICONAZOLE 200 MG TABLET PO SCH (03:44)
[2020-08-10 07:00] VITALS: BP 91/58
[2020-08-10] MEDS: SENNA/DOCUSATE TABLET PO SCH (08:47)
[2020-08-10] MEDS: FAMOTIDINE 20 MG TABLET PO SCH (08:50)
[2020-08-10] MEDS: VALGANCICLOVIR 450MG TABLET PO SCH (08:53)
[2020-08-10] MEDS: Biktarvy HOMEMEDPO SCH (08:54)
[2020-08-10] MEDS ORDERED: VORI200T PO (12:24)
[2020-08-10] MEDS ORDERED: VALG450T PO (12:24)
== END 2020-08-10 14:05 | disposition home or self-care (01) | DRG 974 ==
LOC: ED 20:36 → EDIP 21:14 → 4WST 22:01 → DCLOUNGE 08-10 13:58
PROVIDERS: ADMIT Internal Medicine; ATTEND Hospitalist
PROC: 0B9F8ZX Drainage of Right Lower Lung Lobe, Via Natural or Artificial Opening Endoscopic, Diagnostic (ICD-10-PCS; 2020-07-29)
PROC: 0B9J8ZX Drainage of Left Lower Lung Lobe, Via Natural or Artificial Opening Endoscopic, Diagnostic (ICD-10-PCS; principal; 2020-07-29 07:30)
DX: A41.9 Sepsis, unspecified organism (principal); J96.91 Respiratory failure, unspecified with hypoxia; B20 Human immunodeficiency virus [HIV] disease; B59 Pneumocystosis; J15.9 Unspecified bacterial pneumonia; A08.39 Other viral enteritis; B25.8 Other cytomegaloviral diseases; B44.9 Aspergillosis, unspecified; Z88.8 Allergy status to other drugs, medicaments and biological substances; D50.9 Iron deficiency anemia, unspecified; E87.6 Hypokalemia; Z20.822 Contact with and (suspected) exposure to COVID-19; L27.0 Generalized skin eruption due to drugs and medicaments taken internally; Z86.16 Personal history of COVID-19; Z87.01 Personal history of pneumonia (recurrent)
CPT/HCPCS: 31622; 31624; 36415; 36600; 71045; 71275; 76705; 80048; 80053; 80299; 82272; 82533; 82803; 82962; 83605; 83615; 83735; 84100; 84145; 85025; 85651; 86140; 86361; 86480; 86592; 86631; 86632; 86635; 86644; 86645; 86738; 87015; 87040; 87070; 87102; 87116; 87205; 87206; 87207; 87252; 87281; 87305; 87324; 87328; 87329; 87385; 87449; 87486; 87496; 87497; 87581; 87633; 87635; 87798; 88112; 88305; 89055; 93005; 96361; 96365; 99152; 99153; G0378; J0456; J0696; J1100; J1650; J2250; J3010; J3465; J7060; Q9967; J1450; J1570; J2930; J7030; J7040; J7050; J7120; Q0163; U0003

== ENCOUNTER 2020-08-17 10:52 | Emergency (ER) | payer BC, MEDICAID ==
[~2020-08-17] VITALS: Ht 167.6 cm; Wt 74.8 kg
[~2020-08-17 10:52] MED LIST changes: +BICT1TAB PO; +FLUC200T4 PO; +VALG450T PO; +VORI200T PO
--- NOTE | 2020-08-17 11:23 | NUR ---
PT PLACED ON ALL ROOM MONITORING. ST ON HEART MONITOR, VSS. PT DENIES PAIN AT THIS TIME. PT STATES HE NOTICES PAIN MORE OFTEN WHEN LYING FLAT AND RESTING. PT DENIES COUGH STATES NO RESP PROBLEMS SINCE HOSPITALIZATION. CALL LIGHT WITHIN REACH.
[2020-08-17] MEDS ORDERED: EMTR1TAB14 PO (11:33)
[2020-08-17] MEDS ORDERED: DOLU50TA PO (11:33)
--- NOTE | 2020-08-17 11:39 | NUR ---
PT TO CT.
[2020-08-17 11:41] LABS: BASOPHILS % (AUTO) 1 % (0-1); EOSINOPHILS % (AUTO) 0 % (1-7); LYMPHOCYTES % (AUTO) 35 % (22-44); MEAN CORPUSCULAR HEMOGLOBIN 25.1 pg (27.5-34.5); MEAN CORPUSCULAR HGB CONC 33.2 g/dL (33.2-36.2); MEAN PLATELET VOLUME 7.1 fL (7.4-10.4); MONOCYTES % (AUTO) 8 % (2-9); NEUTROPHILS % (AUTO) 57 % (42-75); PLATELET COUNT 495 x10^3/uL (130-400); RED BLOOD COUNT 4.05 x10^6/uL (4.38-5.82); RED CELL DISTRIBUTION WIDTH 16.8 % (9.4-14.8)
[2020-08-17 11:45] LABS: MD NO
[2020-08-17 11:52] LABS: ALANINE AMINOTRANSFERASE 65 U/L (12-78); ALBUMIN 2.9 g/dL (3.4-5.0); ANION GAP 7 mmol/L (5-15); CALCIUM 8.4 mg/dL (8.5-10.1); CHLORIDE 103 mmol/L (98-107); CREATININE 1.15 mg/dL (0.7-1.3)
[2020-08-17 11:57] LABS: ALKALINE PHOSPHATASE 120 U/L (45-117); BILIRUBIN,TOTAL 0.3 mg/dL (0.2-1.0); TOTAL PROTEIN 7.9 g/dL (6.4-8.2); TROPONIN I < 0.015 ng/mL (0.000-0.045)
--- NOTE | 2020-08-17 12:05 | NUR ---
ERP IN TO SEE PT.
[2020-08-17 12:26] VITALS: BP 122/61
== END 2020-08-17 12:28 | disposition home or self-care (01) ==
LOC: ED 12:22
DX: D53.9 Nutritional anemia, unspecified (principal); R07.89 Other chest pain; J18.9 Pneumonia, unspecified organism; R00.0 Tachycardia, unspecified; R41.0 Disorientation, unspecified; R00.2 Palpitations; Z88.8 Allergy status to other drugs, medicaments and biological substances; Z79.899 Other long term (current) drug therapy
CPT/HCPCS: 36415; 70450; 71045; 80053; 84484; 85025; 93005; 99285

== ENCOUNTER 2021-01-24 20:37 | Emergency (ER) | payer BC, MEDICAID ==
[~2021-01-24 20:37] MED LIST changes: +DOLU50TA PO; +EMTR1TAB14 PO
--- NOTE | 2021-01-24 20:58 | NUR ---
CALLED PT MULTIPLE TIMES. NO ANSWER.
--- NOTE | 2021-01-24 21:15 | NUR ---
CALLED MULTIPLE TIMES. NIL. PRESUMPTIVE LEFT WITHOUT BEING SEEN/PRIOR TO TRAIGE.
== END 2021-01-24 21:17 | disposition left against medical advice (07) ==
LOC: ED 21:00
DX: R19.7 Diarrhea, unspecified (principal); R10.9 Unspecified abdominal pain; Z53.21 Procedure and treatment not carried out due to patient leaving prior to being seen by health care provider

== ENCOUNTER 2021-01-26 00:48 | Emergency (ER) | payer BC, MEDICAID ==
[~2021-01-26] VITALS: Ht 167.6 cm; Wt 76.0 kg
--- NOTE | 2021-01-26 01:13 | NUR ---
PT C/O LOWER ABDOMONAL PAIN AND DAIRRHEA SNCE 3 DAYS. DENES N/V, FEVER/CHILLS. CP, SOB. ATTACHED TO [facility], [facility]. GINGER. [facility] BED IN LOW, RAILS ENGAGED, CALL LIGHT ON LAP.
[2021-01-26 02:03] LABS: BASOPHILS % (AUTO) 1 % (0-1); EOSINOPHILS % (AUTO) 0 % (1-7); LYMPHOCYTES % (AUTO) 26 % (22-44); MEAN CORPUSCULAR HEMOGLOBIN 24.8 pg (27.5-34.5); MEAN PLATELET VOLUME 8.1 fL (7.4-10.4); MONOCYTES % (AUTO) 9 % (2-9); NEUTROPHILS % (AUTO) 65 % (42-75); PLATELET COUNT 284 x10^3/uL (130-400); RED BLOOD COUNT 5.51 x10^6/uL (4.38-5.82); RED CELL DISTRIBUTION WIDTH 15.3 % (9.4-14.8)
[2021-01-26 02:14] LABS: ALANINE AMINOTRANSFERASE 34 U/L (12-78); ALBUMIN 3.6 g/dL (3.4-5.0); ANION GAP 9 mmol/L (5-15); CALCIUM 8.4 mg/dL (8.5-10.1); CHLORIDE 105 mmol/L (98-107); CREATININE 0.98 mg/dL (0.7-1.3)
[2021-01-26 02:16] LABS: ALKALINE PHOSPHATASE 102 U/L (45-117); BILIRUBIN,TOTAL 0.3 mg/dL (0.2-1.0); TOTAL PROTEIN 7.5 g/dL (6.4-8.2)
[2021-01-26 02:45] VITALS: BP 124/65
--- NOTE | 2021-01-26 02:55 | NUR ---
Patient/Caregiver given discharge instructions and they have confirmed that they understand the instructions. Patient ambulatory with steady gait. NAD, all questions answered appropriately, denies additional needs at this time. No personal belongings left in room after discharge.
== END 2021-01-26 02:57 | disposition home or self-care (01) ==
LOC: ED 01:00
DX: R10.31 Right lower quadrant pain (principal); R19.7 Diarrhea, unspecified; Z20.822 Contact with and (suspected) exposure to COVID-19; F17.200 Nicotine dependence, unspecified, uncomplicated
CPT/HCPCS: 36415; 80053; 85025; 99283; U0003; U0005